=== PATIENT | male | born 1995 | race Hispanic/Latino ===

== ENCOUNTER 2022-11-28 13:56 | Emergency (ER) | payer OTHER ==
[~2022-11-28] VITALS: Ht 172.7 cm; Wt 80.7 kg
[2022-11-28] MEDS ORDERED: AMOX500C PO (18:01)
[2022-11-28] MEDS ORDERED: IBUP-1022 PO (18:01)
[2022-11-28] MEDS ORDERED: AMOXICILLIN 500 MG CAP PO ONE (18:20)
[2022-11-28 18:22] VITALS: BP 136/83
== END 2022-11-28 18:24 | disposition home or self-care (01) ==
LOC: M ED 13:56
DX: H66.92 Otitis media, unspecified, left ear (principal); Z79.2 Long term (current) use of antibiotics; Z79.1 Long term (current) use of non-steroidal anti-inflammatories (NSAID)